=== PATIENT | female | born 1980 | race Caucasian/White ===

== ENCOUNTER 2017-01-19 17:58 | Emergency (ER) | payer OTHER ==
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
--- NOTE | 2017-01-19 19:25 | ED ORDER SUMMARY ---
..... Patient: JAYME MOREL OrderSheet [facility] VisitID: [id number] [place] [address] 36y, F Registration Date/Time: 01/19/2017 ORDER SHEET Weight: 108.8 kg Allergies: Adhesive Tape, Sulfa Antibiotics GENERAL ORDERS: CT Sinus/Facial Bones wo Cont Urgent (18:47 01/19/2017 Jeanmarie HaiderAArt-C) ([facility] MEDICATION ORDERS: Motrin PO 800 mg (NOW) (19:19 01/19/2017 Jeanmarie Huggins-C) (Ack 19:28 Samara Wisdom) (19:33 Samara Wisdom) IV FLUIDS: ORDER SHEET NOTES: [Electronically signed by Jim Rascon R.N. (19:35 01/19/2017)] [Electronically signed by Dodie Smith P.A.-C (21:47 01/19/2017)] [Electronically locked/signed by Jim Rascon R.N. (19:35 01/19/2017)]
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
--- NOTE | 2017-01-19 19:25 | ED ORDER SUMMARY ---
..... Patient: JAYME MOREL OrderSheet [facility] VisitID: [id number] [place] [address] 36y, F Registration Date/Time: 01/19/2017 ORDER SHEET Weight: 108.8 kg Allergies: Adhesive Tape, Sulfa Antibiotics GENERAL ORDERS: CT Sinus/Facial Bones wo Cont Urgent (18:47 01/19/2017 Jeanmarie HaiderAArt-C) (18:50 [facility] MEDICATION ORDERS: Motrin PO 800 mg (NOW) (19:19 01/19/2017 Jeanmarie Huggins-C) (Ack 19:28 Samara Wisdom) (19:33 Samara Wisdom) IV FLUIDS: ORDER SHEET NOTES: [Electronically signed by Jim Rascon R.N. (19:35 01/19/2017)] [Electronically signed by Dodie Smith P.A.-C (21:47 01/19/2017)] [Electronically locked/signed by Jim Rascon R.N. (19:35 01/19/2017)]
--- NOTE | 2017-01-19 21:47 | ED MED RECONCILIATION SUMMARY ---
Patient: JAYME MOREL Medication Reconciliation Report [facility] VisitID: [id number] [place] [address] 36y, F Registration Date/Time: 01/19/2017 Weight: 108.8 kg Height/Length: 60 in. BMI: 38.1 ALLERGIES: Adhesive Tape, Sulfa Antibiotics The patient's Home Medications are listed below: THE FOLLOWING MEDICATIONS NEED TO BE RECONCILED: Albuterol Sulfate Inhalation HydrOXYzine HCl Oral Lyrica Oral Propanolol Traz TraZODone HCl Oral Venlafaxine HCl ER Oral The source(s) of the original Home Medication information: patient The following Medications were given to the patient in the Emergency Department: Motrin [PO] PO 800 mg, administered: 01/19/2017 7:33:00 PM The following Medications were prescribed to the patient: Take OTC medications according to label instructions. Available over the counter. -- Dodie Smith P.A.-Rica Acetaminophen (available over the counter): take according to label instructions. -- Dodie Smith, P.A.-Rica Motrin (available over the counter): take according to label instructions. -- Dodie Smith P.A.-C
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
--- NOTE | 2017-01-19 21:47 | ED MED RECONCILIATION SUMMARY ---
Patient: JAYME MOREL Medication Reconciliation Report [facility] VisitID: [id number] [place] [address] 36y, F Registration Date/Time: 01/19/2017 Weight: 108.8 kg Height/Length: 60 in. BMI: 38.1 ALLERGIES: Adhesive Tape, Sulfa Antibiotics The patient's Home Medications are listed below: THE FOLLOWING MEDICATIONS NEED TO BE RECONCILED: Albuterol Sulfate Inhalation HydrOXYzine HCl Oral Lyrica Oral Propanolol Traz TraZODone HCl Oral Venlafaxine HCl ER Oral The source(s) of the original Home Medication information: patient The following Medications were given to the patient in the Emergency Department: Motrin [PO] PO 800 mg, administered: 01/19/2017 7:33:00 PM The following Medications were prescribed to the patient: Take OTC medications according to label instructions. Available over the counter. -- Dodie Smith P.A.-Rica Acetaminophen (available over the counter): take according to label instructions. -- Dodie Smith, P.A.-Rica Motrin (available over the counter): take according to label instructions. -- Dodie Smith P.A.-C
--- NOTE | 2017-01-19 21:47 | ED MAR SUMMARY ---
..... Medication Administration Record [facility] [address] [place] [address] Patient: JAYME MOREL Visit ID: [id number] 36y, F Weight: 108.8 kg Height/Length: 66.5 in BMI: 38.1 ALLERGIES: Sulfa Antibiotics, Adhesive Tape Given 19:33 01/19/2017 Jim Rascon R.N. Medication Administered: MOTRIN [PO], Dose: 800 mg Tablets PO. Medication Ordered: Motrin PO 800 mg (NOW).
--- NOTE | 2017-01-19 21:47 | ED MAR SUMMARY ---
..... Medication Administration Record [facility] [address] [place] [address] Patient: JAYME MOREL Visit ID: [id number] 36y, F Weight: 108.8 kg Height/Length: 66.5 in BMI: 38.1 ALLERGIES: Sulfa Antibiotics, Adhesive Tape Given 19:33 01/19/2017 Jim Rascon R.N. Medication Administered: MOTRIN [PO], Dose: 800 mg Tablets PO. Medication Ordered: Motrin PO 800 mg (NOW).
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
== END 2017-01-19 19:35 | disposition home or self-care (01) ==
LOC: ED SRH 17:58
DX: S00.83XA Contusion of other part of head, initial encounter (principal); S00.12XA Contusion of left eyelid and periocular area, initial encounter; S50.02XA Contusion of left elbow, initial encounter; Y04.8XXA Assault by other bodily force, initial encounter; Y92.9 Unspecified place or not applicable; Y93.9 Activity, unspecified; Y92.039 Unspecified place in apartment as the place of occurrence of the external cause; J98.4 Other disorders of lung; Z79.899 Other long term (current) drug therapy; Z79.51 Long term (current) use of inhaled steroids